=== PATIENT | female | born 1995 | race American Indian/Alaskan Native ===

== ENCOUNTER 2018-09-29 00:49 | Inpatient (IN) | payer BC, MEDICAID, OTHER ==
[2018-09-29] MEDS ORDERED: STADOL IV PRN (02:56)
[2018-09-29] MEDS ORDERED: BRETHINE IVP PRN (02:56)
[2018-09-29] MEDS ORDERED: MINERAL OIL PO PRN (02:56)
[2018-09-29] MEDS ORDERED: XYLOCAINE 2% INFILTRATI ONE (02:56)
[2018-09-29] MEDS ORDERED: BRETHINE SUB-Q PRN (02:56)
[2018-09-29] MEDS ORDERED: PITOCin/NS 20 UNIT/1000ML DRIP 20 UNITS/1,000 ML BAG IV SCH (03:00)
[2018-09-29 04:37] LABS: Hematocrit 33.8 % (30.3-42.9); Hemoglobin 11.2 gm/dl (10.1-14.3); Mean Corpuscular HGB Conc 33 % (30-34); Mean Corpuscular Volume 81 fl (79-97); Platelet Count 227 K/mm3 (140-440); Red Blood Count 4.15 M/mm3 (3.65-5.03); Red Cell Distribution Width 14.6 % (13.2-15.2)
[2018-09-29] MEDS: LACTATED RINGERS 1,000 ML IV SCH ×2 (04:56→14:32)
[2018-09-29] MEDS: CLEOCIN 900 MG/50 mL 900 MG/50 ML BAG IV SCH ×2 (05:16→14:00)
--- NOTE | 2018-09-29 11:12 | History and Physical Report ---
History of Present Illness Date of examination: 09/29/18 (11:00) Date of admission: 09/29/18 03:34 Chief complaint: SROM 09/28/18 @2100 History of present illness: 23 yo AA Fe CHERYL 09/25/2018, 40 weeks 4 days, presents with SROM 09/28 @2100, clear fluid. Pt received care from [facility]. records not available. Pt reports early consistent care. Denies any medical problems. records requested. Past History Past Medical History: no pertinent history (Pt denies). 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 denies: abnormal PAP smear, chlamydia, gonorrhea, hepatitis B, hepatitis C, herpes, HIV, syphilis, trichomonas Family/Genetic History: none (Pt denies) Social history: single, lives with family, full code. denies: smoking, alcohol abuse, prescription drug abuse, IV drug use - Obstetrical History Expected Date of Delivery: 09/25/18 (Per pt; records requested) Actual Gestation: 40 Week(s) 4 Day(s) : 2 Para: 1 Hx # Term Pregnancies: 1 Number of Pregnancies: 0 Spontaneous Abortions: 0 Induced : 0 Number of Living Children: 1 Medications and Allergies Allergies Allergy/AdvReac Type Severity Reaction Status Date / Time Penicillins Allergy Anaphylaxis Verified 09/01/15 13:26 Home Medications Medication Instructions Recorded Confirmed Last Taken Type diphenhydrAMINE [Benadryl CAP] 25 mg PO Q8HR PRN #20 capsule 09/01/15 03/17/16 Unknown Rx Active Meds: Active Medications Butorphanol Tartrate (Stadol) 2 mg IV Q2H PRN PRN Reason: Pain , Severe (7-10) Ephedrine Sulfate (Ephedrine Sulfate) 10 mg IV Q2M PRN PRN Reason: Hypotension Clindamycin HCl (Cleocin 900 Mg/50 Ml) 900 mg in 50 mls @ 100 mls/hr IV Q8HR YENNY; Protocol Last Admin: 09/29/18 05:16 Dose: 100 mls/hr Documented by: Lactated Ringer's (Lactated Ringers) 1,000 mls @ 125 mls/hr IV DIRECT YENNY Last Admin: 09/29/18 04:56 Dose: 125 mls/hr Documented by: Oxytocin/Sodium Chloride (Pitocin/Ns 20 Unit/1000ml Drip) 20 units in 1,000 mls @ 125 mls/hr IV DIRECT YENNY Mineral Oil (Mineral Oil) 30 ml PO QHS PRN PRN Reason: Constipation Terbutaline Sulfate (Brethine) 0.25 mg SUB-Q ONCE PRN PRN Reason: Hyperstimulation/Hypertonicity Terbutaline Sulfate (Brethine) 0.25 mg IVP ONCE PRN PRN Reason: Hyperstimulation/Hypertonicity Review of Systems Eyes: normal appearance Cardiovascular: no chest pain, no shortness of breath Respiratory: no shortness of breath Breasts: normal Gastrointestinal: no abdominal pain, no nausea, no vomiting, no diarrhea, no constipation Genitourinary: normal appearance, leakage of fluid (SROM 09/28/18 @2100), contractions (mild), no vaginal discharge, no genital sores Integumentary: no rash, no sores, no lesions Neurological: other (Denies) Psychiatric: other (Denies) Endocrine: other (Denies) - Vital Signs Vital signs: Vital Signs Pulse BP 85 125/72 09/29/18 01:35 09/29/18 01:35 Temp Pulse Resp BP Pulse Ox 98.0 F 85 14 105/58 09/29/18 05:25 09/29/18 07:39 09/29/18 05:25 09/29/18 07:39 - Physical Exam Breasts: Positive: normal Cardiovascular: Regular rate, Normal S1, Normal S2, No murmurs Lungs: Positive: Clear to auscultation, Normal air movement Abdomen: Positive: normal appearance, soft. Negative: distention Genitourinary (Female): Positive: normal external genitalia, normal perenium Vulva: both: normal Vagina: Positive: normal moisture, other (SROM 09/28/18 @2100) Uterus: Positive: enlarged (Gravid) Anus/Rectum: Positive: normal perianal skin Extremities: Positive: normal Deep Tendon Reflex Grade: Normal +2 - Obstetrical FHR: auscultation normal, category 1 Uterine Contraction Monitor Mode: External Cervical Dilatation: 3 (Posterior, Small amt clear fluid noted with exam) Cervical Effacement Percentage: 50 station: -2 Uterine Contraction Pattern: Irregular Uterine Tone Measurement Phase: Resting Uterine Contraction Intensity: Mild Results Result Diagrams: 09/29/18 03:44 Abnormal lab results 09/29/18 Range/Units 03:44 MCH 27 L (28-32) pg All other labs normal. Assessment and Plan A: Term IUP at 40w4d Category 1 tracing SROM 09/28/18 @2100, moderate clear Afebrile Irregular contractions GBS unknown ( records not available; Requested) P: Routine labor orders GBS Prophylaxis Pitocin Augmentation Anticipate
[2018-09-29] MEDS ORDERED: PITOCin/NS 30 UNIT/500ML 30 UNITS/500 ML BAG IV SCH (12:00)
[2018-09-29] MEDS ORDERED: ZOFRAN IV PRN ×2 (20:06→23:13)
[2018-09-29] MEDS ORDERED: NARCAN 2 MG/2 ML IV PRN (22:24)
--- NOTE | 2018-09-29 22:24 | Anesthesia Consultation ---
Anesthesia Consult and Med Hx Date of service: 09/29/18 - Airway Anesthetic Teeth Evaluation: Good ROM Head & Neck: Adequate Mental/Hyoid Distance: Adequate Mallampati Class: Class II Intubation Access Assessment: Probably Good - Pulmonary Exam CTA: Yes - Cardiac Exam Cardiac Exam: RRR - Pre-Operative Health Status ASA Pre-Surgery Classification: ASA2 Proposed Anesthetic Plan: Epidural - Pulmonary Hx Asthma: No COPD: No Hx Pneumonia: No - Cardiovascular System Hx Hypertension: No - Central Nervous System Hx Seizures: No Hx Psychiatric Problems: No - Endocrine Hx Renal Disease: No Hx End Stage Renal Disease: No Hx Hypothyroidism: No Hx Hyperthyroidism: No - Hematic Hx Anemia: No Hx Sickle Cell Disease: No - Other Systems Hx Alcohol Use: No
[2018-09-29] MEDS ORDERED: fentaNYL-BUPIV 2 MCG/ML-0.125% 200 MCG/100 ML BAG EPIDURAL SCH (23:00)
[2018-09-29] MEDS ORDERED: LANSINOH TP PRN (23:13)
[2018-09-29] MEDS ORDERED: NORCO 5/325 PO PRN (23:13)
[2018-09-29] MEDS ORDERED: DULCOLAX PR PRN (23:13)
[2018-09-29] MEDS ORDERED: MILK OF MAGNESIA PO PRN (23:13)
[2018-09-29] MEDS ORDERED: PHENERGAN PO PRN (23:13)
[2018-09-29] MEDS ORDERED: TYLENOL PO PRN (23:13)
[2018-09-29] MEDS ORDERED: TUCKS PAD TP PRN (23:13)
[2018-09-29] MEDS ORDERED: BENADRYL PO PRN (23:13)
--- NOTE | 2018-09-29 23:27 | Procedure Note ---
OB Delivery Note - Delivery Date of Delivery: 09/29/18 (22:51) Surgeon: CORBY NEW (IDANIA) Estimated blood loss: 200cc - Vaginal Delivery presentation: vertex Delivery position: OA Intrapartum events: none Delivery induction: none Delivery augmentation: pitocin Delivery monitor: external FHT Route of delivery: (22:51) Delivery placenta: spontaneous (23:00) Delivery cord: 3 umbilical vessels Episiotomy: none Delivery laceration: none Anesthesia: none, intravenous Delivery comments: viable female CAYLA presentation over intact perineum at 22:51. Strong lusty cry. placed dxkf-bw-dosp on mothers abdomen. Delayed cord clamping, then cut by FOB with my guidance. Cord blood collected per protocol. Spontaneous rivera delivery of intact placenta at 23:00. FF@U-2. No tears or lacerations. EBL 200ml. Infant and mother left in stable condition in L&D. - A at 1 minute: 8 at 5 minutes: 9 Infant Gender: Female (6lbs 12oz, 3058 grams, 19" Bilateral polydactaly)
[2018-09-29] MEDS ORDERED: SODIUM CHLORIDE FLUSH SYRINGE 10 ML IV PRN (23:45)
[2018-09-30] MEDS: IBUPROFEN PO SCH ×2 (03:57→14:06)
[2018-09-30 12:17] LABS: Hematocrit 28.1 % (30.3-42.9)
--- NOTE | 2018-09-30 12:23 | Progress Note ---
Assessment and Plan A: PPD#1 s/p Asymptomatic anemia Stable P: Routine PP care Discharge home 10/01/18 Subjective - Subjective Date of service: 09/30/18 Principal diagnosis: PPD#1 s/p Interval history: 23 yo AA Fe CHERYL 09/25/2018, 40 weeks 4 days, presents with SROM 13 @2100, clear fluid. Pt received care from [facility]. records not available. Pt reports early consistent care. Denies any medical problems. records requested. Patient reports: appetite normal, voiding normally, pain well controlled, flatus, ambulating normally, no bowel movement : doing well, nursing well Objective - Vital Signs Latest vital signs: Vital Signs Temp Pulse Resp BP BP Pulse Ox 09/30/18 09:06 98.8 F 20 102/65 09/30/18 01:50 98.9 F 94 H 18 105/65 97 09/30/18 00:23 96 H 107/74 09/30/18 00:13 96 H 107/70 09/30/18 00:03 86 111/76 09/29/18 23:53 86 107/71 09/29/18 23:43 96 H 107/68 09/29/18 23:33 93 H 109/62 09/29/18 23:23 95 H 115/69 09/29/18 23:13 90 111/67 09/29/18 23:03 93 H 111/67 09/29/18 22:36 91 H 119/73 09/29/18 22:07 93 H 136/86 09/29/18 21:37 94 H 128/90 09/29/18 21:32 90 125/84 09/29/18 21:07 90 146/99 09/29/18 20:36 96 H 118/77 09/29/18 20:34 22 09/29/18 20:06 112 H 123/91 09/29/18 19:36 97 H 127/88 09/29/18 19:06 93 H 120/82 09/29/18 18:58 98.4 F 18 09/29/18 18:35 88 113/78 09/29/18 18:05 86 115/78 09/29/18 17:35 88 117/79 09/29/18 17:06 82 111/80 09/29/18 16:35 85 102/67 09/29/18 16:20 98.3 F 09/29/18 16:07 85 120/79 09/29/18 15:36 82 109/73 09/29/18 15:05 85 109/72 09/29/18 14:35 88 103/72 09/29/18 14:10 98.0 F 18 Intake and Output 09/29/18 09/30/18 09/30/18 23:59 07:59 15:59 Intake Total 120 Output Total 200 Balance -200 120 Intake: Oral 120 Output: Emesis 200 Other: Total, Intake Amount 120 Total, Output Amount 200 Voiding Method Toilet # Voids 1 Void 2 1 - Exam Breasts: Present: normal, Cardiovascular: Present: Regular rate, Normal S1, Normal S2, No murmurs Lungs: Present: Clear to auscultation, Normal air movement Abdomen: Present: normal appearance, soft, normal bowel sounds. Absent: distention Vulva: both: normal Uterus: Present: firm, fundal height below umbilicus (-1) Extremities: Present: normal Deep Tendon Reflex Grade: Normal +2 - Labs Labs: Abnormal lab results 09/30/18 Range/Units 11:16 Hgb 9.0 L (10.1-14.3) gm/dl Hct 28.1 L (30.3-42.9) %
--- NOTE | 2018-09-30 12:25 | Discharge Summary ---
<FAWN - Last Filed: 09/30/18 12:23> Providers - Providers Date of Admission: 09/29/18 03:34 Date of discharge: 10/01/18 Attending physician: RENEE SWANSON MD Primary care physician: RNEEE SWANSON MD Hospitalization Reason for admission: active labor, IUP at term Delivery: Procedure details: see delivery note Episiotomy: none Laceration: none complications: none Discharge diagnosis: IUP at term delivered baby: female Condition at discharge: Good Disposition: DC-01 TO HOME OR SELFCARE Plan - Provider Discharge Summary Activity: routine, no sex for 6 weeks, no heavy lifting 4 weeks, no strenuous exercise Diet: routine Instructions: routine Additional instructions: [] Smoking cessation referral if applicable(refer to patient education folder for contact #) [] Refer to [facility]'s [facility] Booklet Call your doctor immediately for: * Fever > 100.5 * Heavy vaginal bleeding ( >1 pad per hour) * Severe persistent headache * Shortness of breath * Reddened, hot, painful area to leg or breast * Drainage or odor from incision. * Keep incision clean and dry at all times and follow doctor's instructions regarding bathing/showering - Follow up plan Follow up: RENEE SWANSON MD [Primary Care Provider] - 6 Weeks <STEPHANIE GRAYSON - Last Filed: 10/01/18 13:50> Providers - Providers Date of Admission: 09/29/18 03:34 Attending physician: RENEE SWANSON MD Primary care physician: RENEE SWANSON MD Hospitalization Pertinent studies: Laboratory Results - last 72 hr 09/29/18 09/29/18 09/29/18 03:44 03:44 03:44 WBC 8.2 RBC 4.15 Hgb 11.2 Hct 33.8 MCV 81 MCH 27 L MCHC 33 RDW 14.6 Plt Count 227 RPR Nonreactive Blood Type B POSITIVE Antibody Screen Negative 09/30/18 11:16 WBC RBC Hgb 9.0 L Hct 28.1 L MCV MCH MCHC RDW Plt Count RPR Blood Type Antibody Screen Hospital course: Laboratory Results - last 72 hr 09/29/18 09/29/18 09/29/18 03:44 03:44 03:44 WBC 8.2 RBC 4.15 Hgb 11.2 Hct 33.8 MCV 81 MCH 27 L MCHC 33 RDW 14.6 Plt Count 227 RPR Nonreactive Blood Type B POSITIVE Antibody Screen Negative 09/30/18 11:16 WBC RBC Hgb 9.0 L Hct 28.1 L MCV MCH MCHC RDW Plt Count RPR Blood Type Antibody Screen - Discharge Diagnoses (1) Anemia due to acute blood loss Status: Acute Comment: Asymptomatic. Discharge home on supplemental iron therapy. Plan - Provider Discharge Summary Additional instructions: [] Smoking cessation referral if applicable(refer to patient education folder for contact #) [] Refer to [facility]'s [facility] Booklet Call your doctor immediately for: * Fever > 100.5 * Heavy vaginal bleeding ( >1 pad per hour) * Severe persistent headache * Shortness of breath * Reddened, hot, painful area to leg or breast * Drainage or odor from incision. * Keep incision clean and dry at all times and follow doctor's instructions regarding bathing/showering
[2018-10-01 19:04] VITALS: BP 111/76
== END 2018-10-01 17:00 | disposition home or self-care (01) | DRG 806 ==
LOC: TRG 00:49 → LD 03:34 → OB 09-30 02:17
PROVIDERS: ADMIT Obstetrics & Gynecology; ATTEND Obstetrics & Gynecology
PROC: 10E0XZZ Delivery of Products of Conception, External Approach (ICD-10-PCS; principal; 2018-09-29)
DX: O99.02 Anemia complicating childbirth (principal); D62 Acute posthemorrhagic anemia; Z37.0 Single live birth; Z3A.40 40 weeks gestation of pregnancy; Z88.0 Allergy status to penicillin; Z79.899 Other long term (current) drug therapy
CPT/HCPCS: 36415; 85014; 85018; 85027; 86592; 86850; 86900; 86901; G0378; J0595; J2405; J2590; J7120